=== PATIENT | female | born 1980 | race Caucasian/White ===

== ENCOUNTER 2017-01-08 17:57 | Emergency (ER) | payer OTHER ==
[~2017-01-08] VITALS: Ht 170.2 cm; Wt 232.7 kg
[~2017-01-08 17:57] MED LIST: CLON.5 PO; METF500T PO; NYST10007 TOPICAL; OMEP20TA PO; SERT-129 PO
[2017-01-08 18:00] VITALS: BP 157/83; PULSE 93; RESP 24; TEMP 98.3; O2SAT 98
--- NOTE | 2017-01-08 18:25 | PD ---
HPI Chief Complaint: Musculoskeletal Complaint Time Seen by Provider: 18:09 Travel History International Travel<30 days: No Contact w/Intl Traveler<30days: No Traveled to known affect area: No History of Present Illness HPI 36-year-old female presents to the emergency room for evaluation of left knee pain for the past 6 days. Patient denies trauma or injury. States pain is severe, worse with range of motion and ambulation. It radiates into her thigh and a few inches above her ankle. Denies paresthesias. She has been taking 800 mg ibuprofen without any relief in symptoms. Patient states she held off as long as she could before coming to the emergency room but the pain became too severe. PFSH Past Medical History Asthma: Yes Autoimmune Disease: No Anxiety: Yes Depression: Yes Cancer: No Chemotherapy: No Diabetes: No Diminished Hearing: No Endocrine: No Gastrointestinal Disorders: Yes (OCCASSIONAL GI UPSET AFTER EATING) Immune Disorder: No Psychiatric: No Respiratory: Yes (ASTHMA) Immunizations Current: Yes Radiation Therapy: No Sleep Apnea: Yes Thyroid Disease: Yes Tetanus Vaccination: > 5 Years Influenza Vaccination: No ?: Unknown Past Surgical History Abdominal Surgery: Yes (panniculectomy 12/2014) AICD: No Arteriovenous Shunt: No Cardiac Surgery: No Ear Surgery: No Endocrine Surgery: No Eye Surgery: No Genitourinary Surgery: No Gynecologic Surgery: No Insulin Pump: No Joint Replacement: No Oral Surgery: No Pacemaker: No Thoracic Surgery: No Other Surgery: Yes (COLONOSCOPY) Social History Alcohol Use: Yes (OCC) Tobacco Use: No Substance Use: No Allergies-Medications (Allergen,Severity, Reaction): Coded Allergies: hydromorphone (Unverified Allergy, Severe, ITCH AND BURN, 01/08/17) sulfamethoxazole (Unverified Allergy, Severe, VOMITING, 01/08/17) trimethoprim (Unverified Allergy, Severe, VOMITING, 01/08/17) *MDRO Multi-Drug Resistant Organism (Verified Adverse Reaction, Unknown, ) 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 Afebrile. Ambulatory. SKIN: Focused skin assessment warm/dry. HEAD: Normocephalic. EYES: No scleral icterus. No injection or drainage. NECK: Supple, trachea midline. No JVD or lymphadenopathy. CARDIOVASCULAR: Regular rate and rhythm without murmurs, gallops, or rubs. RESPIRATORY: Breath sounds equal bilaterally. No accessory muscle use. MUSCULOSKELETAL: No cyanosis. 2+ dorsalis pedis pulse. Full range of motion of the right knee. No bony tenderness to palpation. No obvious edema. Data Data Last Documented VS Vital Signs Date Time Temp Pulse Resp B/P (MAP) Pulse Ox O2 Delivery O2 Flow Rate FiO2 01/08/17 18:00 98.3 93 24 157/83 (107) 98 Orders Orders Knee, Complete (4vws) (01/08/17 ) [facility] Medical Decision Making Medical Screen Exam Complete: Yes Emergency Medical Condition: Yes Medical Record Reviewed: Yes Differential Diagnosis Morbid obesity, degenerative disc disease, effusion, internal derangement Narrative Course 36-year-old female presents to the emergency room for evaluation of left knee pain for the past 6 days. Patient denies trauma or injury. She is ambulatory in the emergency room. Left lower extremity is neurovascularly intact with 2+ bounding dorsalis pedis pulse. Physical exam is somewhat limited because of body habitus. There is no erythema, obvious edema, increased warmth, or ecchymosis. Patient has full range of motion. X-ray shows no acute bony abnormality. Patient was placed in Adriano wrap and told to follow-up with a primary care physician or return for worsening symptoms. She understands and agrees to plan. Diagnosis Primary Impression: Left knee pain Qualified Codes: M25.562 - Pain in left knee Referrals: Primary Care Physician Additional Instructions: Rest and drink plenty of fluids. Adriano wrap as needed for pain. Take ibuprofen with food as directed, as needed for pain. Apply ice to the affected area for 20 minutes at a time, as needed for pain and swelling. Follow-up with a primary care physician. Return to the emergency room for worsening symptoms. Med/Other Pt SpecificInfo: Prescription(s) given Disposition: 01 DISCHARGE HOME Condition: Stable Azeb Kenny Jan 08, 2017 18:25
--- NOTE | 2017-01-08 19:01 | RADRPT ---
EXAM DATE/TIME: 01/08/2017 18:17 [facility] COMPARISON: No previous studies available for comparison. INDICATIONS : Left knee pain. MEDICAL HISTORY : Obesity. SURGICAL HISTORY : None. ENCOUNTER: Initial ACUITY: 1 week PAIN SCORE: 10/10 LOCATION: Left knee. FINDINGS: Four view examination of the left knee demonstrates no evidence of fracture or dislocation. Bony min eralization is normal. The articular surfaces are intact. The suprapatellar soft tissues have a nor mal configuration. CONCLUSION: Unremarkable examination of the left knee. Alonzo Mills MD on January 08, 2017 at 18:59 Board Certified Radiologist. This report was verified electronically.
[2017-01-08] MEDS ORDERED: IBUP800T23 PO (19:26)
[2017-01-08 19:27] VITALS: BP 157/83; PULSE 87; RESP 22; TEMP 98; O2SAT 98
[2017-01-11] MEDS ORDERED: WHEEMIS3 (09:05)
== END 2017-01-08 19:49 | disposition home or self-care (01) ==
LOC: PHEFT 17:57
DX: M25.562 Pain in left knee (principal); E07.9 Disorder of thyroid, unspecified; G47.30 Sleep apnea, unspecified; E66.9 Obesity, unspecified; Z87.09 Personal history of other diseases of the respiratory system; Z86.59 Personal history of other mental and behavioral disorders; Z87.19 Personal history of other diseases of the digestive system
CPT/HCPCS: 73564; 99283

== ENCOUNTER 2017-10-23 10:17 | Emergency (ER) | payer OTHER ==
[~2017-10-23] VITALS: Ht 165.1 cm; Wt 237.8 kg
[~2017-10-23 10:17] MED LIST changes: +IBUP1TAB7 PO; -OMEP20TA PO; +OMEP20TA93 PO; +WHEEMIS3
[2017-10-23 10:29] VITALS: BP 130/72; PULSE 83; RESP 20; TEMP 97.8; O2SAT 95
[2017-10-23] MEDS ORDERED: CLINDAMYCIN 150 MG CAP PO ONE (10:45)
[2017-10-23] MEDS ORDERED: LIDOCAINE 1%/EPINEPHrine 1:100,000 SOLN 20 ML VIAL INFIL ONE (10:45)
[2017-10-23] MEDS ORDERED: CLIN300C5 PO (10:48)
--- NOTE | 2017-10-23 10:49 | PD ---
HPI Chief Complaint: Skin Problem Time Seen by Provider: 10:35 Travel History International Travel<30 days: No Contact w/Intl Traveler<30days: No Traveled to known affect area: No History of Present Illness HPI 37 year old female presents to the emergency department for evaluation of skin irritation, possible abscess to her right thigh. Patient states it started approximately a week ago and has been worsening. Patient states it has been draining, but seems worse than her typical abscess. Patient states pain is 10/ 10, aching and throbbing, without radiation. Pain is worse with ambulation. Patient denies any fevers, chills. No other symptoms. Mild severity. Patient denies . PFSH Past Medical History Asthma: Yes Autoimmune Disease: No Anxiety: Yes Depression: Yes Cancer: No Chemotherapy: No Diabetes: No Diminished Hearing: No Endocrine: No Gastrointestinal Disorders: Yes (OCCASSIONAL GI UPSET AFTER EATING) Immune Disorder: No Psychiatric: No Respiratory: Yes (ASTHMA) Immunizations Current: Yes Radiation Therapy: No Sleep Apnea: Yes Thyroid Disease: Yes ?: Not LMP: 1 week ago Past Surgical History Abdominal Surgery: Yes (panniculectomy 12/2014) AICD: No Arteriovenous Shunt: No Cardiac Surgery: No Ear Surgery: No Endocrine Surgery: No Eye Surgery: No Genitourinary Surgery: No Gynecologic Surgery: No Insulin Pump: No Joint Replacement: No Oral Surgery: No Pacemaker: No Thoracic Surgery: No Other Surgery: Yes (COLONOSCOPY) Social History Alcohol Use: Yes (OCC) Tobacco Use: No Substance Use: No Allergies-Medications (Allergen,Severity, Reaction): Coded Allergies: hydromorphone (Unverified Allergy, Severe, ITCH AND BURN, 10/23/17) sulfamethoxazole (Unverified Allergy, Severe, VOMITING, 10/23/17) trimethoprim (Unverified Allergy, Severe, VOMITING, 10/23/17) *MDRO Multi-Drug Resistant Organism (Verified Adverse Reaction, Unknown, ) 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 Afebrile. SKIN: Focused skin assessment warm/dry. Patient has a [-] cm area of erythema with a central area with possible fluctuance. HEAD: Normocephalic. Atraumatic. EYES: No scleral icterus. No injection or drainage. NECK: Supple, trachea midline. No JVD or lymphadenopathy. CARDIOVASCULAR: Regular rate and rhythm without murmurs, gallops, or rubs. RESPIRATORY: Breath sounds equal bilaterally. No accessory muscle use. Lung sounds are clear to auscultation. MUSCULOSKELETAL: No cyanosis, or edema. Data Data Last Documented VS Vital Signs Date Time Temp Pulse Resp B/P (MAP) Pulse Ox O2 Delivery O2 Flow Rate FiO2 10/23/17 10:29 97.8 83 20 130/72 (91) 95 Orders Orders Wound Culture And Gram Stain (10/23/17 10:41) Lidocai-Epi 1%-1:100,000 Inj (Xylocaine- (10/23/17 10:45) Clindamycin (Cleocin) (10/23/17 10:45) Ed Discharge Order (10/23/17 11:06) Ibuprofen (Motrin) (10/23/17 11:15) MDM Medical Decision Making Medical Screen Exam Complete: Yes Emergency Medical Condition: Yes Medical Record Reviewed: Yes Differential Diagnosis abscess vs. cellulitis vs. cyst Narrative Course 37 year old female presents to the emergency department for evaluation of possible abscess to right thigh. Patient gives verbal consent for incision and drainage. Wound culture is taken. Patient will be started on Clindamycin and is given her first dose here. Patient is instructed on proper wound care. She is to follow up with her primary care physician or return here for any acute, worsening of symptoms. The patient was discharged in stable condition with instructions, including return instructions and follow up instructions. Procedures Procedure Narrative INCISION AND DRAINAGE OF ABSCESS: The area was prepped and was sterilely draped. A subcutaneous wheal of 1% Xylocaine with epinephrine with a total number 3 mL was used to anesthetize the area. The area was properly anesthetized. A number 11 scalpel was used to make a 1 -cm incision across the area of the abscess. Cultures were obtained. The abscess was drained an irrigated with normal saline. Sterile dressing applied. Diagnosis Primary Impression: Abscess of right thigh Referrals: Primary Care Physician call for appointment Patient Instructions: Abscess (ED), Abscess Incision and Drainage (GEN), General Instructions Additional Instructions: Clean are twice daily with soap and water and apply over the counter antibiotic ointment. Take antibiotic as directed until gone. Follow-up with a primary care physician. Return to the emergency department for any acute worsening of symptoms. Med/Other Pt SpecificInfo: Prescription(s) given Scripts Clindamycin (Clindamycin) 300 Mg Cap 300 MG PO Q6H for Infection for 10 Days, #40 CAP 0 Refills Prov: Irina Denson 10/23/17 Disposition: 01 DISCHARGE HOME Condition: Stable Irina Denson Oct 23, 2017 10:48
[2017-10-23] MEDS ORDERED: BUPR100CR PO (10:53)
[2017-10-23] MEDS ORDERED: IBUPROFEN 600 MG TAB PO ONE (11:15)
== END 2017-10-23 11:28 | disposition home or self-care (01) ==
LOC: PHEFT 10:17
DX: L02.415 Cutaneous abscess of right lower limb (principal); B95.62 Methicillin resistant Staphylococcus aureus infection as the cause of diseases classified elsewhere; J45.909 Unspecified asthma, uncomplicated; F32.9 Major depressive disorder, single episode, unspecified; Z16.19 Resistance to other specified beta lactam antibiotics; Z16.11 Resistance to penicillins; Z16.29 Resistance to other single specified antibiotic
CPT/HCPCS: 10060; 86403; 87070; 87186